=== PATIENT | female | born 1950 | race Caucasian/White ===

== ENCOUNTER 2016-10-20 13:03 | Inpatient (IN) | payer MEDICARE ==
[~2016-10-20] VITALS: Ht 160 cm; Wt 77.8 kg
[~2016-10-20 13:03] MED LIST: /CELE20CA; /CELE20CA OR; /DULO30CA OR; /PROG10CA; /PROG10CA OR; ALLE25CA; ALLE25CA OR; BACL10TA2; BACL10TA2 OR; DARV100T; DIPHENHYDRAMINE; ESTR5TDPCH; ESTR5TDPCH TD; ESTR625TA; ESTRADIOL; GABA600T3; GABA600T3 OR; HYDR25TA6; HYDR25TA6 OR; LIDO5DIS; LIDOCAINE 5% TF; LIDODERM PATCH; NEUR600T; OMEP20TA7 OR; PREM0.626 VA; PROG-34; SAVELLA; SIMV20TA2; SIMV20TA2 OR; SIMV5TAB2; TOPI25TA2 OR; TOPR50TA; TOPR50TA OR; TRAM50TA2; TRAM50TA2 OR; TRIAMCINOLONE; TRIAMCINOLONE TOP; VENL37.5; VENL37.5 OR; [UNRECOGNIZED DRUG - OTHER]; [UNRECOGNIZED DRUG - OTHER] TOP; simvastatin OR
[2016-10-20] MEDS ORDERED: BACL10TA2 PO ×2 (13:16→17:51)
[2016-10-20] MEDS ORDERED: PREVINJ2 (13:16)
[2016-10-20] MEDS ORDERED: HYDR-3719 PO (13:16)
[2016-10-20] MEDS ORDERED: HYDR25TA6 PO (13:16)
[2016-10-20] MEDS ORDERED: SIMV20TA2 PO ×2 (13:16→17:51)
--- NOTE | 2016-10-20 14:40 | REP ---
PA and lateral chest: Comparison 11/20/2005. There is a left pleural effusion, not present previously. There is discoid atelectasis peripherally in the left lung, not present previously. The right lung is clear. Cardiac size is normal. The lo, mediastinum, and bony thorax are unremarkable. On the lateral view there is a focal density in the substernal space, not present previously, infiltrate versus mass. Impression: Left pleural effusion. Discoid atelectasis in the left lung. Mass versus infiltrate in the sub- sternal space. Signed by Souleymane Mejia MD 10/20/2016 02:32 P
[2016-10-20 14:52] LABS: BASO % 0.2 % (0.0-1.0); EOS # 0.2 K/mm3 (0.0-0.50); EOS % 2.4 % (0.0-3.0); LARGE UNSTAINED CELL # 0.1 K/mm3 (0.0-0.4); LARGE UNSTAINED CELL % 1.5 % (0.0-4.0); LYMPH # 1.6 K/mm3 (1.5-4.5); LYMPH % 19.6 % (24.0-44.0); MEAN CORPUSCULAR HEMOGLOBIN 30.6 pg (27.0-33.0); MEAN CORPUSCULAR HGB CONC 32.3 g/dl (32.0-36.5); MEAN CORPUSCULAR VOLUME 94.8 fl (80.0-96.0); MONO # 0.5 K/mm3 (0.0-0.8); NEUTROPHILS # 5.4 K/mm3 (1.8-7.7); NEUTROPHILS % 70.2 % (36.0-66.0); PLATELET COUNT, AUTOMATED 323 k/mm3 (150-450); RED CELL DISTRIBUTION WIDTH 13.1 % (11.5-14.5); WHITE BLOOD COUNT 7.7 K/mm3 (4.0-10.0)
[2016-10-20 15:01] LABS: INR 1.11
[2016-10-20 15:16] LABS: ALBUMIN 3.3 GM/DL (3.2-5.2); ALBUMIN/GLOBULIN RATIO 0.89 (1.00-1.93); ALKALINE PHOSPHATASE 85 U/L (45-117); ALT/SGPT 33 U/L (12-78); ANION GAP 7 MEQ/L (8-16); AST/SGOT 18 U/L (15-37); BILIRUBIN,DIRECT < 0.1 MG/DL (0.0-0.2); BILIRUBIN,TOTAL 0.3 MG/DL (0.2-1.0); BLOOD UREA NITROGEN 15 MG/DL (7-18); CALCIUM LEVEL 9.1 MG/DL (8.8-10.2); CARBON DIOXIDE LEVEL 29 MEQ/L (21-32); CHLORIDE LEVEL 107 MEQ/L (98-107); CREATININE FOR GFR 0.76 MG/DL (0.55-1.02); GLOMERULAR FILTRATION RATE > 60.0 (>45); GLUCOSE, FASTING 92 MG/DL (80-110); POTASSIUM SERUM 3.1 MEQ/L (3.5-5.1); SODIUM LEVEL 143 MEQ/L (136-145)
[2016-10-20] MEDS ORDERED: ISOVUE-370 76% 100ML VIAL (Q9967) As Ordered ONE (15:32)
[2016-10-20] MEDS ORDERED: POTASSIUM CHLORIDE 10 MEQ SR TABLET PO ONE (15:45)
[2016-10-20] MEDS ORDERED: KETOROLAC 30 MG/ML VIAL (J1885) IV ONE (15:45)
--- NOTE | 2016-10-20 16:06 | REP ---
CT of the chest with IV contrast: The study is correlated with PA and lateral plain film study performed earlier today. There are patchy confluent left lower lobe infiltrate seen there is a left pleural effusion. There is an infiltrate anteriorly in the lingular segment of the left upper lobe. This has a density is seen in the substernal space on the lateral view of the plain film study earlier today. The right lung is clear. There are bilateral pulmonary emboli in the distal right and left main pulmonary arteries.. I suspect there is also left hilar adenopathy. The thoracic aorta is unremarkable. Cardiac size is normal. There is no pericardial effusion. Upper abdomen: The visualized hepatic parenchyma is unremarkable. The visualized portions of the gallbladder, pancreas and spleen are unremarkable. The adrenals and renal upper poles are unremarkable. Impression: Bilateral pulmonary emboli in the distal right and left main pulmonary arteries. Left lower lobe patchy confluent infiltrates and left pleural effusion. Infiltrate anteriorly in the lingula. This results in the sub sternal density on the plain films earlier today. Signed by Souleymane Mejia MD 10/20/2016 03:57 P
[2016-10-20] MEDS ORDERED: AZITHROMYCIN INJ 500 MG, VIAL MATE ADAPTER 1 EACH in D5W 250 ML IV ONE (16:15)
[2016-10-20] MEDS ORDERED: cefTRIAXone SOD 1 GM in D5W MINI-BAG PLUS 50 ML IV ONE (16:15)
[2016-10-20 16:52] LABS: ABG BASE EXCESS 0.8 (-2.0-2.0); ABG HCO3 24.3 MEQ/L (22.0-26.0); ABG PARTIAL PRESSURE CO2 35.2 mmHg (35.0-45.0); ABG PARTIAL PRESSURE O2 78.1 mmHg (75.0-100.0); ABG STANDARD HCO3 25.1 MEQ/L (22.0-26.0); ABG TOTAL CO2 25.4 MEQ/L (23.0-31.0); ABG pH (ARTERIAL) 7.457 UNITS (7.350-7.450)
[2016-10-20] MEDS ORDERED: APIXABAN 5 MG TAB (ELIQUIS) PO ONE ×2 (17:30→18:00)
--- NOTE | 2016-10-20 17:35 | REP ---
Clinical: Pulmonary embolus . Technique: Altman scale and color Doppler evaluation using linear high frequency transducer. Findings: Ultrasound examination of the right and left lower extremity deep venous structures from the common femoral vein to the popliteal vein demonstrates normal compressibility flow and wave patterns in response to respiration and augmentation. There is no evidence for deep venous thrombosis. Impression: No evidence for deep venous thrombosis. Signed by Young Bautista MD 10/20/2016 05:26 P
[2016-10-20] MEDS ORDERED: HYDR25TAB PO (17:51)
[2016-10-20] MEDS ORDERED: TOPA25TA10 PO (17:51)
[2016-10-20] MEDS ORDERED: TOPA50TA7 PO (17:51)
[2016-10-20] MEDS ORDERED: METO-207 PO (17:51)
[2016-10-20] MEDS ORDERED: GABA600T PO (17:51)
[2016-10-20] MEDS ORDERED: NORC1TAB4 PO (17:51)
[2016-10-20] MEDS ORDERED: NORC10TA2 PO (17:51)
[2016-10-20] MEDS ORDERED: NATU400T PO (17:53)
[2016-10-20] MEDS ORDERED: APIXABAN 5 MG TAB (ELIQUIS) As Ordered ONE (18:19)
[2016-10-20] MEDS ORDERED: NORCO, ANEXSIA 5/325MG TABLET (HYDROcodone/ACETAMINOPHEN) PO PRN (18:45)
[2016-10-20] MEDS ORDERED: BISACODYL 5 MG TAB PO PRN (18:45)
[2016-10-20] MEDS ORDERED: ACETAMINOPHEN TAB 650MG DOSE (2X325MG) PO PRN (18:45)
[2016-10-20] MEDS ORDERED: ONDANSETRON 4MG/2ML VIAL (J2405) IV PRN (18:45)
--- NOTE | 2016-10-20 20:06 | ECGEPIP ---
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
[2016-10-20] MEDS ORDERED: METOPROLOL SUCC (TopROL XL) 50MG **XL** TAB PO SCH (21:00)
[2016-10-20] MEDS ORDERED: BACLOFEN 10 MG TAB PO SCH (21:00)
[2016-10-20] MEDS: BACLOFEN 10 MG TAB PO SCH (21:00)
[2016-10-20 21:11] VITALS: BP 164/70
[2016-10-20] MEDS: GABAPENTIN 300 MG CAP PO SCH (21:46)
[2016-10-20] MEDS: SIMVASTATIN 20 MG TAB PO SCH (21:46)
[2016-10-20] MEDS: SLF 3 ML SYR IV SCH (21:50)
[2016-10-20] MEDS: TOPIRAMATE (TopAMAX) 25 MG TAB PO SCH (21:53)
[2016-10-20] MEDS ORDERED: NORCO, ANEXSIA 5/325MG TABLET (HYDROcodone/ACETAMINOPHEN) PO ONE (23:00)
[2016-10-20 23:59] VITALS: BP 105/53
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
[2016-10-21 04:00] VITALS: BP 94/52
[2016-10-21 06:00] LABS: BASO % 0.4 % (0.0-1.0); EOS # 0.3 K/mm3 (0.0-0.50); LARGE UNSTAINED CELL # 0.2 K/mm3 (0.0-0.4); LARGE UNSTAINED CELL % 2.7 % (0.0-4.0); LYMPH # 2.2 K/mm3 (1.5-4.5); LYMPH % 31.1 % (24.0-44.0); MEAN CORPUSCULAR HEMOGLOBIN 31.2 pg (27.0-33.0); MEAN CORPUSCULAR HGB CONC 32.5 g/dl (32.0-36.5); MEAN CORPUSCULAR VOLUME 95.9 fl (80.0-96.0); MONO # 0.4 K/mm3 (0.0-0.8); MONO % 6.2 % (0.0-5.0); NEUTROPHILS # 3.6 K/mm3 (1.8-7.7); NEUTROPHILS % 54.6 % (36.0-66.0); PLATELET COUNT, AUTOMATED 300 k/mm3 (150-450); RED CELL DISTRIBUTION WIDTH 13.1 % (11.5-14.5); WHITE BLOOD COUNT 6.6 K/mm3 (4.0-10.0)
[2016-10-21] MEDS: SLF 3 ML SYR IV SCH ×3 (06:00→22:00)
[2016-10-21 06:25] LABS: ALBUMIN 2.7 GM/DL (3.2-5.2); ALKALINE PHOSPHATASE 69 U/L (45-117); ALT/SGPT 24 U/L (12-78); ANION GAP 6 MEQ/L (8-16); AST/SGOT 13 U/L (15-37); BLOOD UREA NITROGEN 17 MG/DL (7-18); CALCIUM LEVEL 8.7 MG/DL (8.8-10.2); CARBON DIOXIDE LEVEL 29 MEQ/L (21-32); CHLORIDE LEVEL 108 MEQ/L (98-107); GLUCOSE, FASTING 90 MG/DL (80-110); MAGNESIUM LEVEL 2.2 MG/DL (1.8-2.4); SODIUM LEVEL 143 MEQ/L (136-145)
[2016-10-21 06:28] LABS: ALBUMIN/GLOBULIN RATIO 0.77 (1.00-1.93); BILIRUBIN,TOTAL 0.2 MG/DL (0.2-1.0); CREATININE FOR GFR 0.73 MG/DL (0.55-1.02); GLOMERULAR FILTRATION RATE > 60.0 (>45); TOTAL PROTEIN 6.2 GM/DL (6.4-8.2)
[2016-10-21] MEDS: cefTRIAXone SOD 1 GM in D5W MINI-BAG PLUS 50 ML IV SCH ×2 (06:39→17:02)
[2016-10-21] MEDS ORDERED: SODIUM CHLORIDE 0.9% 1000 ML IV ONE (07:15)
[2016-10-21] MEDS ORDERED: POTASSIUM CHLORIDE 10 MEQ SR TABLET PO ONE (07:30)
[2016-10-21 07:35] VITALS: BP 133/62
[2016-10-21] MEDS ORDERED: hydroCHLOROthiazide 25 MG TAB PO SCH (09:00)
[2016-10-21] MEDS ORDERED: METOPROLOL SUCC (TopROL XL) 50MG **XL** TAB PO SCH (09:00)
[2016-10-21] MEDS: GABAPENTIN 300 MG CAP PO SCH ×4 (09:13→21:21)
[2016-10-21] MEDS: APIXABAN 5 MG TAB (ELIQUIS) PO SCH ×2 (09:18→21:20)
[2016-10-21] MEDS: NORCO, ANEXSIA 5/325MG TABLET (HYDROcodone/ACETAMINOPHEN) PO PRN ×2 (09:21→21:23)
[2016-10-21] MEDS: BACLOFEN 10 MG TAB PO SCH ×3 (09:21→21:20)
[2016-10-21] MEDS: VITAMIN E 400 INTERNATIONAL UNITS CAP PO SCH (11:07)
[2016-10-21] MEDS: TOPIRAMATE (TopAMAX) 25 MG TAB PO SCH ×2 (11:08→23:26)
[2016-10-21 12:00] VITALS: BP 126/67
--- NOTE | 2016-10-21 14:36 | IPNPDOC ---
Text Note Date of Service The patient was seen on 10/21/16. NOTE Subjective: Patient is a 66 year old female with a PMHx of HTN, DLP, Fibromyalgia , Migraine Headaches, Chronic back pain 2/2 spinal stenosis, Hx of Multiple rib fractures and GERD who presented to the ER with complaints of left sided chest pain and shortness of breath. Patient was evaluated by neurology and then directed to see her PCP after she was found to have a suspected rib fracture on imaging. PCP has directed patient to the ER where she received additional imaging. She was noted to have a bilateral pulmonary embolism and left sided pleural effusion and left lower lobe patchy infiltrates. She was admitted for CAP and PE. Patient was seen and examined at the bedside. Currently she notes that there has not been a significant different in her breathing, although the pain has subsided slightly. Objective: Vitals (See below) General: Lying in bed, no acute distress, comfortable, AAOx3 HEENT: NC, AT CVS: RRR, +S1S2 Lungs: Fair air entry b/l, no appreciable crackles or wheezes Abdomen: Soft, ND, NT, +BSx4 Extremities: +PPx4, - Edema, - Calf tenderness Assessment and plan: 1. Left sided chest pain - possibly 2/2 pulmonary embolisms and pneumonia, less likely cardiac etiology - Presented with worsening left sided chest pain associated with shortness of breath - Physical unrevealing - no tenderness on palpation - No reported fevers or leukocytosis was noted - CT chest 10/20: bilateral PE, LLL patchy infiltrates and L pleural effusion, infiltrate anteriorly at the lingula - Duplex US of LE 10/20: negative for PE - EKG reviewed; sinus, no evidence of T wave inversions or ST segment deviations - Cardiac enzymes x 2 sets are negative; third pending - Hypercoagulability workup pending - Patient has been started on Eliquis 10mg PO BID (x10 days), then transition to 5 BID 2. Community acquired pneumonia - Reported shortness of breath - No reported cough or fevers at home - No leukocytosis or lactic acidosis noted - Influenza A/B negative - Sputum culture, Blood cultures, Strep pneumonia antigen pending - CT chest 10/20: patchy infiltrates and L pleural effusion, infiltrate anteriorly at the lingula - c/w Ceftriaxone and Azithromycin (Day #2) 2. Hypokalemia - will supplement again this morning 3. HTN - BP was hypotensive this morning; noted to have taken a double dose of metoprolol 50 in the evening - Changed metoprolol from BID dosing to QD dosing - Discontinued HCTZ for now 4. Fibromyalgia - c/w Gabapentin - c/w Tylenol PRN 5. Migrain headaches - c.w Topiramate 6. Chronic back pain 2/2 Spinal stenosis - Reports pain radiating to her lower extremities - c/w Hydrocodone / Acetaminophen PRN 7. Hx of multiple rib fractures - c/w pain control 8. DVT prophylaxis - on full anticoagulation with Eliquis VS,Fishbone, I+O VS, Fishbone, I+O Laboratory Tests 10/20/16 14:32 Red Blood Count 3.99 L, Mean Corpuscular Volume 94.8, Mean Corpuscular Hemoglobin 30.6, Mean Corpuscular Hemoglobin Concent 32.3, Red Cell Distribution Width 13.1, Neutrophils (%) (Auto) 70.2 H, Lymphocytes (%) (Auto) 19.6 L, Monocytes (%) (Auto) 6.0 H, Eosinophils (%) (Auto) 2.4, Basophils (%) ( Auto) 0.2, Neutrophils # (Auto) 5.4, Lymphocytes # (Auto) 1.6, Monocytes # (Auto ) 0.5, Eosinophils # (Auto) 0.2, Basophils # (Auto) 0.0 10/21/16 05:22 Red Blood Count 3.52 L, Mean Corpuscular Volume 95.9, Mean Corpuscular Hemoglobin 31.2, Mean Corpuscular Hemoglobin Concent 32.5, Red Cell Distribution Width 13.1, Neutrophils (%) (Auto) 54.6, Lymphocytes (%) (Auto) 31.1, Monocytes (%) (Auto) 6.2 H, Eosinophils (%) (Auto) 5.0 H, Basophils (%) ( Auto) 0.4, Neutrophils # (Auto) 3.6, Lymphocytes # (Auto) 2.2, Monocytes # (Auto ) 0.4, Eosinophils # (Auto) 0.3, Basophils # (Auto) 0.0, Calcium Level 8.7 L, Aspartate Amino Transf (AST/SGOT) 13 L, Alanine Aminotransferase (ALT/SGPT) 24, Total Creatine Kinase 56, Alkaline Phosphatase 69, Total Bilirubin 0.2, Total Protein 6.2 L, Albumin 2.7 L Vital Signs Date Time Temp Pulse Resp B/P (MAP) Pulse Ox O2 Delivery O2 Flow Rate FiO2 10/21/16 12:00 98.0 67 20 126/67 (86) 95 Room Air I&O- Last 24 Hours up to 6 AM 10/21/16 06:00 Intake Total 530 ml Output Total 200 ml Balance 330 ml SALLIE DEL RIO MD Oct 21, 2016 14:36
[2016-10-21 16:00] VITALS: BP 119/57
[2016-10-21] MEDS: SLF 3 ML SYR IV PRN ×2 (17:02→17:43)
[2016-10-21] MEDS ORDERED: AZITHROMYCIN INJ 500 MG, VIAL MATE ADAPTER 1 EACH in D5W 250 ML IV SCH (18:00)
[2016-10-21 19:53] VITALS: BP 130/63
[2016-10-21] MEDS: SIMVASTATIN 20 MG TAB PO SCH (21:21)
[2016-10-21 23:55] VITALS: BP 138/65
[2016-10-22 04:00] VITALS: BP 124/62
[2016-10-22] MEDS: cefTRIAXone SOD 1 GM in D5W MINI-BAG PLUS 50 ML IV SCH (06:04)
[2016-10-22] MEDS: SLF 3 ML SYR IV SCH (06:04)
[2016-10-22 07:56] VITALS: BP 132/74
[2016-10-22] MEDS: GABAPENTIN 300 MG CAP PO SCH ×2 (07:56→12:27)
[2016-10-22] MEDS: APIXABAN 5 MG TAB (ELIQUIS) PO SCH (07:56)
[2016-10-22] MEDS: BACLOFEN 10 MG TAB PO SCH (07:56)
[2016-10-22 07:57] LABS: BASO % 0.3 % (0.0-1.0); EOS # 0.3 K/mm3 (0.0-0.50); EOS % 4.9 % (0.0-3.0); LARGE UNSTAINED CELL # 0.1 K/mm3 (0.0-0.4); LARGE UNSTAINED CELL % 1.8 % (0.0-4.0); LYMPH # 2.2 K/mm3 (1.5-4.5); LYMPH % 33.7 % (24.0-44.0); MEAN CORPUSCULAR HEMOGLOBIN 31.4 pg (27.0-33.0); MEAN CORPUSCULAR HGB CONC 32.4 g/dl (32.0-36.5); MEAN CORPUSCULAR VOLUME 96.8 fl (80.0-96.0); MONO # 0.4 K/mm3 (0.0-0.8); MONO % 5.8 % (0.0-5.0); NEUTROPHILS # 3.4 K/mm3 (1.8-7.7); NEUTROPHILS % 53.6 % (36.0-66.0); PLATELET COUNT, AUTOMATED 302 k/mm3 (150-450); WHITE BLOOD COUNT 6.3 K/mm3 (4.0-10.0)
[2016-10-22] MEDS: NORCO, ANEXSIA 5/325MG TABLET (HYDROcodone/ACETAMINOPHEN) PO PRN (07:57)
[2016-10-22 08:00] VITALS: BP 151/74
[2016-10-22 08:42] LABS: ALBUMIN 2.8 GM/DL (3.2-5.2); ALBUMIN/GLOBULIN RATIO 0.76 (1.00-1.93); ALKALINE PHOSPHATASE 66 U/L (45-117); ALT/SGPT 25 U/L (12-78); ANION GAP 6 MEQ/L (8-16); AST/SGOT 14 U/L (15-37); BILIRUBIN,TOTAL 0.2 MG/DL (0.2-1.0); BLOOD UREA NITROGEN 13 MG/DL (7-18); CALCIUM LEVEL 8.4 MG/DL (8.8-10.2); CARBON DIOXIDE LEVEL 27 MEQ/L (21-32); CHLORIDE LEVEL 112 MEQ/L (98-107); CREATININE FOR GFR 0.67 MG/DL (0.55-1.02); GLOMERULAR FILTRATION RATE > 60.0 (>45); GLUCOSE, FASTING 88 MG/DL (80-110); MAGNESIUM LEVEL 2.2 MG/DL (1.8-2.4); POTASSIUM SERUM 3.2 MEQ/L (3.5-5.1); SODIUM LEVEL 145 MEQ/L (136-145); TOTAL PROTEIN 6.5 GM/DL (6.4-8.2)
[2016-10-22] MEDS ORDERED: METOPROLOL SUCC (TopROL XL) 50MG **XL** TAB PO SCH (09:00)
[2016-10-22] MEDS: VITAMIN E 400 INTERNATIONAL UNITS CAP PO SCH (10:47)
[2016-10-22] MEDS: TOPIRAMATE (TopAMAX) 25 MG TAB PO SCH (10:47)
[2016-10-22] MEDS ORDERED: ELIQ5TAB PO (11:11)
[2016-10-22] MEDS ORDERED: AZIT500T2 PO (11:12)
[2016-10-22] MEDS ORDERED: CEFD300CAP FT (11:12)
[2016-10-22] MEDS ORDERED: K-TA1TAB PO (11:14)
[2016-10-22] MEDS ORDERED: POTASSIUM CHLORIDE 10 MEQ SR TABLET PO ONE (12:00)
[2016-10-22 12:01] VITALS: BP 139/67
--- NOTE | 2016-10-22 15:52 | DSES ---
DATE OF ADMISSION: 10/20/2016 DATE OF DISCHARGE: 10/22/2016 ATTENDING PHYSICIAN: Dr. Aleksandr Marques PRIMARY CARE PHYSICIAN: Dr. Wilver Marcum REFERRING PHYSICIAN: None. CONSULTING PHYSICIAN: None. CONDITION ON DISCHARGE: Stable. FINAL DIAGNOSIS: Left-sided chest pain likely secondary to underlying pneumonia, less likely secondary to cardiac etiology. PROCEDURES: None. HISTORY OF PRESENT ILLNESS: The patient is a 66-year-old female with a past medical history of hypertension, dyslipidemia, fibromyalgia, migraine headaches, chronic back pain secondary to spinal stenosis, history of multiple rib fractures in the past, and gastroesophageal reflux disease (GERD) who presented to the emergency room (ER) with complaints of left-sided chest pain and shortness of breath. The patient was evaluated by neurology and then directed to see her primary care provider (PCP) after she was found to have a suspected rib fracture on imaging. PCP has directed the patient to the ER where she was received additional imaging. She was noted to have a bilateral pulmonary embolism and left-sided pleural effusions and left lower lobe patchy infiltrates. She was admitted for community-acquired pneumonia and pulmonary embolism. HOSPITAL COURSE: 1. Left-sided chest pain, possibly secondary to underlying pneumonia, possibly secondary to pulmonary embolism, less likely secondary to cardiac etiology. She presented with worsening left-sided chest pain associated with shortness of breath. Physical was unrevealing. No tenderness on palpation. No reported fevers or leukocytosis were noted. CT chest on 10/20/2016 revealed bilateral pulmonary embolisms, left lower lobe patchy infiltrates, and left pleural effusions, infiltrate anteriorly at the lingula. Duplex ultrasound of the lower extremities on 10/20/2016 was negative for pulmonary embolism. EKG was reviewed. It showed sinus rhythm with no evidence of T wave inversions or ST segment deviations. Cardiac enzymes times three sets were negative. Hypercoagulability state has been pending and the patient will followup as an outpatient. The patient has been started on Eliquis 10 mg by mouth twice a day for 10 days and then will be transitioned to 5 mg twice a day. 2. Community-acquired pneumonia. She reported shortness of breath. No reported cough or fevers at home. No leukocytosis or lactic acidosis was noted. Influenza A and B screen has been negative. Sputum cultures, blood cultures, Streptococcus pneumoniae antigen remain pending. Most recent blood cultures after 24 hours have been negative[address] chest on 10/20/2016 revealed again patchy infiltrates and left pleural effusion, infiltrate anteriorly at the lingula. Continued with ceftriaxone and azithromycin throughout the hospital course. The patient was transitioned to cefdinir and azithromycin upon discharge. 3. Hypokalemia throughout the hospital course, has been supplemented throughout the hospital course, and upon discharge the patient will be given supplementation. 4. Hypertension. Blood pressure was hypotensive this morning, noted to have taken a double dose of metoprolol in the evening. Metoprolol dose was changed from twice a day dosing to daily dosing and hydrochlorothiazide has been discontinued while she was in the hospital. 5. Fibromyalgia. Continue with gabapentin. Continue with Tylenol as needed. 6. Migraine headaches. Continue with topiramate. 7. Chronic back pain, secondary to spinal stenosis. Reports pain radiating to her lower extremities. Continue with hydrocodone and acetaminophen as needed. 8. History of multiple rib fractures. Continue with pain control. 9. Deep vein thrombosis (DVT) prophylaxis. She has been put on full anticoagulation with Eliquis. DISCHARGE MEDICATIONS: The patient will be discharged home with the following medication list: New medications include: - Eliquis 5 mg by mouth twice a day - azithromycin 500 mg by mouth daily - cefdinir 300 mg twice a day - potassium chloride 20 mEq by mouth daily Continued medications include: - [place] 10/325 one tablet by mouth twice a day as needed for severe pain - [place] 5/325 one tablet by mouth twice a day as needed for mild pain - vitamin E 4000 units by mouth daily - baclofen 10 mg by mouth three times a day - gabapentin 600 mg by mouth four times a day - hydrochlorothiazide 25 mg by mouth every morning - metoprolol succinate 50 mg by mouth daily - simvastatin 20 mg by mouth at bedtime - topiramate 25 mg by mouth twice a day DISCHARGE INSTRUCTIONS: The patient has been advised to followup with her primary care provider within the next seven days. She has been advised to remain compliant with treatment plan and medications and return to the emergency room if she experiences any problems. TIME SPENT ON DISCHARGE: 35 minutes.
[2016-10-24 01:12] LABS: ORGANISM ID Not indicated. (.); SPECIMEN SOURCE Urine (.)
== END 2016-10-22 13:19 | disposition home or self-care (01) | DRG 175 ==
LOC: M ED 16:40 → M ED INP 17:30 → M PCU 20:59
PROVIDERS: ATTEND Internal Medicine
DX: I26.99 Other pulmonary embolism without acute cor pulmonale (principal); J18.9 Pneumonia, unspecified organism; J90 Pleural effusion, not elsewhere classified; I10 Essential (primary) hypertension; E78.5 Hyperlipidemia, unspecified; M79.7 Fibromyalgia; K21.9 Gastro-esophageal reflux disease without esophagitis; G43.909 Migraine, unspecified, not intractable, without status migrainosus; E87.6 Hypokalemia; Z79.899 Other long term (current) drug therapy; M54.5 Low back pain

== ENCOUNTER → 2018-03-12 | Outpatient (CLI) | payer MEDICARE, MEDICAID | LOC: M RAD 09:29 | DX: M84.374A Stress fracture, right foot, initial encounter for fracture (principal) | CPT/HCPCS: 78315 ==

== ENCOUNTER → 2019-03-15 | Outpatient (CLI) | payer MEDICARE, MEDICAID ==
[~2019-03-15] MED LIST changes: -/CELE20CA; -/CELE20CA OR; -/DULO30CA OR; -/PROG10CA; -/PROG10CA OR; +AZIT500T5 PO; +BACL10TA2 PO; +CEFD300CAP FT; +CELE1CAP4; +CELE1CAP4 OR; +CYMB1CAP5 OR; +ELIQ5TAB PO; +ESTR0.059; +ESTR0.059 TD; -ESTR5TDPCH; -ESTR5TDPCH TD; +GABA600T4 PO; +HYDR-3719 PO; +HYDR25TA6 PO; +HYDR25TAB PO; +K-TA1TAB PO; +METO-743; +METO-743 OR; +METO1TAB7 PO; +NATU400T PO; +NORC1TAB5 PO; +NORC1TAB7 PO; +PREVINJ2; +PROM1CAP; +PROM1CAP OR; +SIMV20TA2 PO; +TOPA1TAB PO; +TOPA50TA8 PO; -TOPR50TA; -TOPR50TA OR
--- NOTE | 2019-03-15 14:03 | REPMRS ---
Patient History The patient states she has not had a clinical breast exam in over a year. No known family history of cancer. No Hormone Replacement Therapy 3D TOMOSYNTHESIS WAS PERFORMED. The Kimberlee Bernard lifetime risk for breast cancer is 4.1%. Digital Woman Screen Mammo: March 15, 2019 - Exam #: [id number] Bilateral CC and MLO view(s) were taken. Technologist: Jennifer Gaines, Technologist Prior study comparison: July 01, 2011, bilateral digital mammo screening bilat, performed at [facility]. February 26, 2009, bilateral digital mammo screening bilat, performed at [facility]. FINDINGS: The breast tissue is heterogeneously dense. This may lower the sensitivity of mammography. There is a fairly symmetric fibroglandular pattern in both breasts. There has been no interval development of masses, areas of architectural distortion or clusters of microcalcifications typical of malignancy. Large coarse benign appearing calcifications are present. No significant changes when compared with prior studies. Assessment: BI-RADS/ACR category 2 mammogram. Benign Findings. Recommendation Routine screening mammogram of both breasts in 1 year (for women over age 40). This mammogram was interpreted with the aid of an FDA-approved computer-aided dectection system. Electronically Signed By: Souleymane Altman MD 03/15/19 [id number]
== END ==
LOC: M WHC 12:44
PROVIDERS: ATTEND Internal Medicine
DX: Z12.31 Encounter for screening mammogram for malignant neoplasm of breast (principal)

== ENCOUNTER → 2019-09-20 | Outpatient (CLI) | payer MEDICARE, MEDICAID ==
[~2019-09-20] MED LIST changes: -SIMV20TA2 PO; +SIMV20TA22 PO
[2019-09-20 12:47] LABS: BASO % 0.4 % (0.0-1.0); EOS # 0.3 10^3/uL (0.0-0.5); EOS % 3.8 % (0.0-3.0); HEMATOCRIT 40.7 % (36.0-47.0); HEMOGLOBIN 13.2 g/dl (12.0-15.5); LYMPH # 2.1 10^3/uL (1.5-5.0); MEAN CORPUSCULAR HGB CONC 32.4 g/dl (32.0-36.5); MEAN CORPUSCULAR VOLUME 98.5 fl (80.0-96.0); MONO # 0.7 10^3/uL (0.0-0.8); MONO % 9.5 % (0.0-5.0); NEUTROPHILS # 4.5 10^3/uL (1.5-8.5); PLATELET COUNT, AUTOMATED 283 10^3/uL (150-450); RED BLOOD COUNT 4.13 10^6/uL (4.00-5.40); WHITE BLOOD COUNT 7.7 10^3/uL (4.0-10.0)
[2019-09-22 16:08] LABS: Lyme Disease IgG Ab 18 kDa Ban Absent (.); Lyme Disease IgG Ab 23 kDa Ban Absent (.); Lyme Disease IgG Ab 28 kDa Ban Absent (.); Lyme Disease IgG Ab 30 kDa Ban Absent (.); Lyme Disease IgG Ab 39 kDa Ban Absent (.); Lyme Disease IgG Ab 41 kDa Ban Absent (.); Lyme Disease IgG Ab 45 kDa Ban Absent (.); Lyme Disease IgG Ab 58 kDa Ban Absent (.); Lyme Disease IgG Ab 66 kDa Ban Absent (.); Lyme Disease IgG Ab 93 kDa Ban Absent (.); Lyme Disease IgG West Blot Int Negative (.); Lyme Disease IgG/IgM Antibodie 1.44 ISR (0.00-0.90); Lyme Disease IgM Ab 23 kDa Ban Present (.); Lyme Disease IgM Ab 39 kDa Ban Absent (.); Lyme Disease IgM Ab 41 kDa Ban Absent (.); Lyme Disease IgM Ab Quantitati 1.16 index (0.00-0.79); Lyme Disease IgM West Blot Int Negative (.)
== END ==
LOC: M WUC 10:13
PROVIDERS: ATTEND Physician Assistant
DX: S20.461A Insect bite (nonvenomous) of right back wall of thorax, initial encounter (principal); X58.XXXA Exposure to other specified factors, initial encounter; Y92.9 Unspecified place or not applicable; Z79.899 Other long term (current) drug therapy

== ENCOUNTER → 2020-07-05 | Outpatient (CLI) | payer MEDICARE, MEDICAID ==
[~2020-07-05] MED LIST changes: +HYDR-3490 PO; -HYDR25TAB PO
== END ==
LOC: M WHC 11:34
PROVIDERS: ATTEND Internal Medicine
DX: Z12.31 Encounter for screening mammogram for malignant neoplasm of breast (principal)

== ENCOUNTER → 2020-07-11 | Outpatient (CLI) | payer MEDICARE, MEDICAID ==
--- NOTE | 2020-07-11 15:39 | REP ---
INDICATION: DENIS DIAG MAMMO/R BREAST PAIN; R BREAST PAIN. Patient reports pain in approximately 11 o'clock position right upper outer quadrant x6 months. Denies palpable abnormality. COMPARISON: Mammography studies are reviewed dated 15 March 2019, 24 November 2016, 19 February 2015, and 26 February 2009. TECHNIQUE: Bilateral CC and MLO) view(s) were taken. 3D tomography is carried out and targeted right breast sonography is performed. FINDINGS: Breast parenchyma is again noted to be heterogeneously dense in a pattern which may inhibit the sensitivity mammography. There is a stable grouping of microcalcifications in the upper outer quadrant on the right unchanged from the 2008 prior study. There are benign calcifications in each breast also unchanged. No breezy density, architectural distortion, new micro calcific grouping, or worrisome skin changes seen. The Volpara volumetric breast density pattern is C. Targeted right breast sonography: Scanning in the right breast in the upper outer quadrant demonstrates a 5 x 4 x 4 mm hypoechoic area of 4.9 cm from the nipple associated with some acoustic shadowing. There is no enhanced through transmission and there appear to be internal echoes. The lesion does not meet criteria of a simple cyst. No other sonographic finding.. IMPRESSION: BI-RADS category 4 suspicious sonographic findings right breast. Mammogram is unchanged. Histologic sampling is suggested. This patient's Tyrer-Cuzick lifetime breast cancer risk assessment score is 3.7%. This mammogram was interpreted with the aid of an FDA-approved computer-aided detection system. The patient states she had a clinical breast exam in greater than a year ago.. The patient letter being requested is M4. RECOMMENDATION: Ultrasound-guided needle biopsy with marker clip placement and post clip placement mammography of the right breast recommended.. <Electronically signed by Arthur Kumari > 07/11/20 [id number]
== END ==
LOC: M WHC 12:47
PROVIDERS: ATTEND Internal Medicine
DX: N64.4 Mastodynia (principal); R92.8 Other abnormal and inconclusive findings on diagnostic imaging of breast
CPT/HCPCS: 76642; 77066; G0279

== ENCOUNTER → 2020-09-05 | Outpatient (CLI) | payer MEDICARE, MEDICAID ==
[~2020-09-05] MED LIST changes: +AIMO70IN SC; +K-TA10TA2 PO; +NORT10CA2 PO
[2020-09-05 14:17] VITALS: BP 138/84
--- NOTE | 2020-09-05 16:46 | REP ---
INDICATION: N63.10 RT BREAST MASS, US GUIDED BIOPSY. COMPARISON: 07/11/2020. TECHNIQUE: Real-time sonographic guidance utilized by Dr. Madison for biopsy of right breast. FINDINGS: Dr. Madison utilized ultrasound for biopsy of the right breast. IMPRESSION: Dr. Madison utilized ultrasound for biopsy of the right breast.I was not present for the procedure. RECOMMENDATION: Clinical follow-up. <Electronically signed by Souleymane Altman > 09/05/20 [id number]
--- NOTE | 2020-09-05 20:22 | REP ---
INDICATION: N63.10 RT BREAST MASS, POST US GUIED BIOPSY. COMPARISON: 07/11/2020. TECHNIQUE: ML and CC views right breast. FINDINGS: Biopsy clip is seen in the posterior upper outer quadrant of the right breast. IMPRESSION: Biopsy clip is seen in the posterior upper outer quadrant of the right breast. RECOMMENDATION: Clinical follow-up. <Electronically signed by Souleymane Altman > 09/05/202017
--- NOTE | 2020-09-08 00:14 | ROOPDOC ---
[facility] Report Of Operation Report of Operation DATE OF PROCEDURE: 09/05/20 DIAGNOSIS: right breast suspicious lesion PROCEDURE: ultrasound guided biopsy of the right breast suspicious lesion with clip placement SURGEON: Rashel Crawley BLOOD LOSS: minimal COMPLICATIONS: none Lidocaine 1% LOT [id number] Expiration 07/2023 Sodium Bicarbonate 8.4% LOT [id number] Expiration 05/2021 Hydromark clip LOT [id number] Expiration 03/2023 SHAPE : 4 Bx device: BARD [id number] x10 cm LOT [id number] Expiration 05/2023 Informed consent was obtained. The most common risk and possible complications including bleeding, hematoma, bruising, infection, injury to surrounding structures were explained to the patient and the patient expressed understanding. Patient was placed on the bed in the supine position. Appropriate time out was done stating patients name, date of , and the procedure to be performed. The right breast was prepped and draped in the usual fashion. The ultrasound was used to confirm the location of the lesion in the right breast at 9:00 5 centimeters from the nipple. Plain Lidocaine 1% and 8.4% sodium bicarbonate 10:1 mix was used to anesthetize the skin, the biopsy site and tissues along the anticipated biopsy tract. Small skin incision was made with blade number 11. BARD Marquee 14G cannula with introducer ([id number]) was inserted through the incision and advanced under the ultrasound guidance to position immediately adjacent to the lesion. Next, the introducer was removed and BARD Marquee 14G biopsy device was places in the cannula. Pre-biopsy imaging, and post-biopsy imaging were captured. Five good core biopsies were taken at various levels of the lesion. Specimen was placed in formaldehyde, labeled with appropriate biopsy site and patients name, and sent to pathology for evaluation. Next, the biopsy device was withdrawn and a clip introducer was inserted into the biopsy site via the cannula. SHAPE 4 Hydromark clip was deployed under sonographic guidance. Post-clip placement image was captured. Manual pressure over the biopsy cavity and tract was held after the clip introducer was withdrawn. No bleeding was noted upon removal of the pressure. Post-biopsy mammogram of the right breast was obtained and showed clip in expected position. Postprocedural dressing was placed. Patient tolerated procedure well. Discharge instructions were discussed with the patient and the patient expressed understanding. RASHEL CRAWLEY DO September 08, 2020 00:14
== END ==
LOC: M WHCPRO 06:50
PROVIDERS: ATTEND Surgery
DX: N60.21 Fibroadenosis of right breast (principal); N63.12 Unspecified lump in the right breast, upper inner quadrant

== ENCOUNTER → 2021-03-12 | Outpatient (CLI) | payer MEDICARE, MEDICAID ==
--- NOTE | 2021-03-13 16:12 | REP ---
INDICATION: R BREAST MASS/6 MO BENIGN BX/CK STABILITY. COMPARISON: Diagnostic right mammogram, 09/05/2020. TECHNIQUE: 2D and 3D cc and MLO views of the right breast were obtained. FINDINGS: Is breast density is Volpara B, there are scattered areas of fibroglandular density. Biopsy clip is noted in the upper outer quadrant of the right breast. There are no suspicious calcifications, dominant masses or areas of architectural distortion. IMPRESSION: BIRADS/ACR : Category 2: Benign finding. The patient letter being requested is M2. RECOMMENDATION: Repeat screening mammography recommended 1 year (for women over 40). <Electronically signed by Alexi Field > 03/13/21 [id number]
--- NOTE | 2021-03-15 13:48 | REP ---
INDICATION: Six-month follow-up biopsy COMPARISON: Right breast ultrasound 07/11/2020 and 09/05/2020. TECHNIQUE: Targeted images of the right breast were obtained. FINDINGS: Right breast: 9 o'clock, 5 cm from the nipple, at the area of biopsy, HydroMARK clip is seen at biopsy site. IMPRESSION: HydroMARK clip is seen at the biopsy site. <Electronically signed by Alexi Field > 03/15/21 [id number]
== END ==
LOC: M WHC 11:03
PROVIDERS: ATTEND Surgery
DX: N64.89 Other specified disorders of breast (principal)
CPT/HCPCS: 76642; 77065; G0279

== ENCOUNTER → 2021-09-12 | Outpatient (CLI) | payer MEDICARE, MEDICAID | LOC: M WHC 10:26 | PROVIDERS: ATTEND Nurse Practitioner Women's Health | DX: Z12.31 Encounter for screening mammogram for malignant neoplasm of breast (principal); Z80.42 Family history of malignant neoplasm of prostate ==

== ENCOUNTER 2021-11-12 10:31 | Emergency (ER) | payer MEDICARE, MEDICAID ==
[~2021-11-12] VITALS: Ht 160 cm; Wt 63.6 kg
[2021-11-12] MEDS ORDERED: NS 500 ML IV ONE (13:50)
[2021-11-12] MEDS ORDERED: ONDANSETRON 4MG 2ML VIAL IV ONE (13:50)
[2021-11-12] MEDS ORDERED: ACETAMINOPHEN 1000MG 100ML IV BTL (OFIRMEV) (J0131 PER 10MG) IV ONE (13:50)
[2021-11-12 13:56] LABS: BASO % 0.5 % (0.0-1.0); EOS # 0.1 10^3/uL (0.0-0.5); EOS % 2.1 % (0.0-3.0); HEMATOCRIT 37.4 % (36.0-47.0); HEMOGLOBIN 12.5 g/dl (12.0-15.5); LYMPH # 1.4 10^3/uL (1.5-5.0); MEAN CORPUSCULAR HEMOGLOBIN 30.9 pg (27.0-33.0); MEAN CORPUSCULAR HGB CONC 33.4 g/dl (32.0-36.5); MEAN CORPUSCULAR VOLUME 92.3 fl (80.0-96.0); MONO # 0.7 10^3/uL (0.0-0.8); MONO % 11.7 % (2.0-8.0); NEUTROPHILS # 3.6 10^3/uL (1.5-8.5); NEUTROPHILS % 61.5 % (36.0-66.0); PLATELET COUNT, AUTOMATED 309 10^3/uL (150-450); RED BLOOD COUNT 4.05 10^6/uL (4.00-5.40); WHITE BLOOD COUNT 5.8 10^3/uL (4.0-10.0)
[2021-11-12 14:31] LABS: ALBUMIN 3.3 GM/DL (3.2-5.2); ALT/SGPT 23 U/L (12-78); BILIRUBIN,DIRECT < 0.1 MG/DL (0.0-0.2); BILIRUBIN,TOTAL 0.3 MG/DL (0.2-1.0); BLOOD UREA NITROGEN 12 MG/DL (7-18); CALCIUM LEVEL 8.8 MG/DL (8.8-10.2); CARBON DIOXIDE LEVEL 27 MEQ/L (21-32); CHLORIDE LEVEL 110 MEQ/L (98-107); CREATININE FOR GFR 0.63 MG/DL (0.55-1.30); GLOMERULAR FILTRATION RATE > 60.0 (>39); GLUCOSE, FASTING 78 MG/DL (70-100); LIPASE 101 U/L (73-393); POTASSIUM SERUM 3.9 MEQ/L (3.5-5.1); SODIUM LEVEL 143 MEQ/L (136-145); TOTAL PROTEIN 6.2 GM/DL (6.4-8.2)
[2021-11-12 14:37] LABS: APPEARANCE, URINE CLEAR (CLEAR); BACTERIA, URINE AUTO NEGATIVE (NEGATIVE); BILIRUBIN, URINE AUTO NEGATIVE (NEGATIVE); BLOOD, URINE BLOOD 1+ (NEGATIVE); COLOR, URINE YELLOW (YELLOW); GLUCOSE, URINE (UA) AUTO NEGATIVE (NEGATIVE); KETONE, URINE AUTO TRACE mg/dL (NEGATIVE); LEUKOCYTE ESTERASE, URINE AUTO NEGATIVE (NEGATIVE); NITRITE, URINE AUTO NEGATIVE (NEGATIVE); PROTEIN, URINE AUTO NEGATIVE (NEGATIVE); RBC, URINE AUTO 1 /HPF (0-3); SQUAMOUS EPITHELIAL CELL UR AU 1 /HPF (0-6); UROBILINOGEN, URINE AUTO 0.2 mg/dL (0.0-2.0); WBC, URINE AUTO 0 /HPF (0-3)
[2021-11-12] MEDS ORDERED: ISOVUE-370 76% 100ML VIAL As Ordered ONE (14:40)
[2021-11-12 15:11] LABS: RSV AMPLIFICATION NEGATIVE (NEGATIVE)
[2021-11-12 17:27] LABS: CK-MB VALUE MASS 2.2 NG/ML (<3.6); MB/CK RELATIVE INDEX 3.61 (< OR =4)
[2021-11-12] MEDS ORDERED: AMOX875T2 PO (17:42)
[2021-11-12 18:20] VITALS: BP 116/62
== END 2021-11-12 18:20 | disposition home or self-care (01) ==
LOC: M ED 10:31
DX: J18.9 Pneumonia, unspecified organism (principal); R19.7 Diarrhea, unspecified; R91.8 Other nonspecific abnormal finding of lung field; K76.0 Fatty (change of) liver, not elsewhere classified; I10 Essential (primary) hypertension; K21.9 Gastro-esophageal reflux disease without esophagitis; Z86.711 Personal history of pulmonary embolism; Z79.899 Other long term (current) drug therapy; Z88.8 Allergy status to other drugs, medicaments and biological substances
CPT/HCPCS: 71046; 74177; 76705; 80048; 80076; 81001; 82550; 82553; 83690; 84484; 85025; 87631; 93005; 96361; 96374; 96375; 99284; J0131; J2405; Q9967

== ENCOUNTER → 2022-06-23 | Outpatient (CLI) | payer MEDICARE, MEDICAID ==
[~2022-06-23] MED LIST changes: +AIMO70IN2; +AMOX875T2 PO; +ECOT81TA5 PO; +HYDR-3716; +TOPI100T9; +VITA100093 PO
== END ==
LOC: M LABSMTC 10:12
PROVIDERS: ATTEND Anesthesiology
DX: Z01.812 Encounter for preprocedural laboratory examination (principal)

== ENCOUNTER 2022-06-27 07:41 | Day surgery (SDC) | payer MEDICARE, MEDICAID ==
[~2022-06-27] VITALS: Ht 160 cm; Wt 67.9 kg
[~2022-06-27 07:41] MED LIST changes: +NS 1,000 ML IV ONE
[2022-06-27] MEDS ORDERED: propofoL 200 MG/20 ML VIAL As Ordered ONE (09:34)
[2022-06-27] MEDS ORDERED: LIDOCAINE 2% 100MG/5ML SDV (FOR ANES.) As Ordered ONE (09:34)
[2022-06-27 10:30] VITALS: BP 147/67
== END 2022-06-27 10:43 | disposition home or self-care (01) ==
LOC: M OPP 07:41
PROVIDERS: ATTEND Internal Medicine Gastroenterology
DX: Z12.11 Encounter for screening for malignant neoplasm of colon (principal); I10 Essential (primary) hypertension; E78.5 Hyperlipidemia, unspecified; M79.7 Fibromyalgia; G43.909 Migraine, unspecified, not intractable, without status migrainosus; G62.9 Polyneuropathy, unspecified; G47.30 Sleep apnea, unspecified; M48.00 Spinal stenosis, site unspecified; Z86.711 Personal history of pulmonary embolism; Z88.8 Allergy status to other drugs, medicaments and biological substances; Z79.82 Long term (current) use of aspirin; Z79.899 Other long term (current) drug therapy

== ENCOUNTER → 2022-09-23 | Outpatient (CLI) | payer MEDICARE, MEDICAID ==
[~2022-09-23] MED LIST changes: -NS 1,000 ML IV ONE
== END ==
LOC: M WHC 12:18
PROVIDERS: ATTEND Internal Medicine
DX: Z12.31 Encounter for screening mammogram for malignant neoplasm of breast (principal); Z80.42 Family history of malignant neoplasm of prostate

== ENCOUNTER → 2023-01-01 | Outpatient (CLI) | payer MEDICARE, MEDICAID ==
[~2023-01-01] MED LIST changes: -K-TA10TA2 PO; +POTA-165 PO
== END ==
LOC: M SOG 12:44
PROVIDERS: ATTEND Physician Assistant
DX: M79.641 Pain in right hand (principal); M79.642 Pain in left hand; M19.041 Primary osteoarthritis, right hand; M19.042 Primary osteoarthritis, left hand

== ENCOUNTER → 2024-08-24 | Outpatient (CLI) | payer MEDICARE, MEDICAID ==
[~2024-08-24] MED LIST changes: +GABA-1490 PO; -GABA600T4 PO; -HYDR-3716; +HYDR-3716 PO; +TOPI-257 PO; -TOPI100T9
== END ==
LOC: M WHC 12:15
PROVIDERS: ATTEND Internal Medicine
DX: Z12.31 Encounter for screening mammogram for malignant neoplasm of breast (principal); R92.323 Mammographic fibroglandular density, bilateral breasts

== ENCOUNTER → 2024-12-19 | Outpatient (CLI) | payer MEDICARE, MEDICAID ==
[2024-12-19 18:18] LABS: CREATININE FOR GFR 0.87 MG/DL (0.55-1.30); GLOMERULAR FILTRATION RATE 69.0 (>39)
== END ==
LOC: M PLALAB 13:22
PROVIDERS: ATTEND Psychiatry & Neurology Neurology
DX: I10 Essential (primary) hypertension (principal)